=== PATIENT | female | born 1985 | race Caucasian/White ===

== ENCOUNTER → 2016-09-06 | Outpatient (CLI) | payer MEDICAID ==
--- NOTE | 2016-09-06 18:44 | REP ---
Clinical: Hydrocephalus. Comparison: 08/06/2015. Findings: Shunt remains stable in position as compared to prior examination with its tip extending to the midline likely related to the anterior horns of the lateral ventricles and extends along the right side of the cranium, neck, chest and abdomen/pelvis extending with its tip in the pelvis. Tubing appears continuous throughout its course and without evidence for stenosis or fracture. AP and lateral views of the cranium are stable and a right occipital giovanny hole is again identified. Frontal view of the chest is unremarkable. Views of the abdomen and pelvis demonstrate nonspecific bowel gas pattern. The osseous structures appear intact and normal. Impression: Shunt appears continuous from its tip in the region of the midline lateral ventricles along its course into the pelvis. Signed by Devyn Lynn MD 09/06/2016 06:36 P
== END ==
LOC: M RAD 17:38
PROVIDERS: ATTEND Family Medicine
DX: Z45.41 Encounter for adjustment and management of cerebrospinal fluid drainage device (principal)

== ENCOUNTER → 2019-06-20 | Outpatient (REF) | payer MEDICARE, MEDICAID | LOC: M LAB REF 16:19 | PROVIDERS: ATTEND Registered Nurse | DX: J02.9 Acute pharyngitis, unspecified (principal) ==

== ENCOUNTER 2020-12-23 13:41 | Emergency (ER) | payer MEDICARE, MEDICAID ==
[~2020-12-23] VITALS: Ht 157.5 cm; Wt 99.7 kg
[2020-12-23] MEDS ORDERED: VENL150T24 (13:55)
[2020-12-23] MEDS ORDERED: DROS3TAB (13:55)
[2020-12-23] MEDS ORDERED: LORA-674 (13:55)
[2020-12-23 19:01] LABS: BASO # 0.1 10^3/uL (0.0-0.2); BASO % 0.5 % (0.0-1.0); EOS % 0.2 % (0.0-3.0); HEMATOCRIT 48.6 % (36.0-47.0); HEMOGLOBIN 16.1 g/dl (12.0-15.5); LYMPH # 1.6 10^3/uL (1.5-5.0); LYMPH % 8.7 % (24.0-44.0); MEAN CORPUSCULAR HGB CONC 33.1 g/dl (32.0-36.5); MEAN CORPUSCULAR VOLUME 90.7 fl (80.0-96.0); MONO # 1.5 10^3/uL (0.0-0.8); MONO % 7.9 % (2.0-8.0); NEUTROPHILS # 15.2 10^3/uL (1.5-8.5); NEUTROPHILS % 82.3 % (36.0-66.0); PLATELET COUNT, AUTOMATED 414 10^3/uL (150-450); RED BLOOD COUNT 5.36 10^6/uL (4.00-5.40)
[2020-12-23 19:03] LABS: WHITE BLOOD COUNT 18.5 10^3/uL (4.0-10.0)
[2020-12-23] MEDS ORDERED: ISOVUE-370 76% 100ML VIAL As Ordered ONE (19:15)
[2020-12-23 19:26] LABS: ALBUMIN 4.1 GM/DL (3.2-5.2); ALT/SGPT 36 U/L (12-78); BILIRUBIN,TOTAL 0.4 MG/DL (0.2-1.0); BLOOD UREA NITROGEN 13 MG/DL (7-18); CALCIUM LEVEL 10.1 MG/DL (8.5-10.1); CARBON DIOXIDE LEVEL 29 MEQ/L (21-32); CHLORIDE LEVEL 103 MEQ/L (98-107); CREATININE FOR GFR 1.05 MG/DL (0.55-1.30); GLOMERULAR FILTRATION RATE > 60.0 (>60); GLUCOSE, FASTING 94 MG/DL (70-100); LIPASE 72 U/L (73-393); POTASSIUM SERUM 4.2 MEQ/L (3.5-5.1); SODIUM LEVEL 138 MEQ/L (136-145); TOTAL PROTEIN 8.4 GM/DL (6.4-8.2)
[2020-12-23] MEDS ORDERED: KETOROLAC 30 MG/ML 1ML VIAL IV ONE (20:45)
--- NOTE | 2020-12-23 21:14 | REPVR ---
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 COMPARISON: CR Skull, partial Ap, Lat 09/25/2015 4:51 PM FINDINGS: Tubes, catheters and devices: MANIFOLD BUILDER shunt catheter overlies the right side of the neck, chest, abdomen and pelvis with the tip at the sacrococcygeal junction. Sinuses: Visualized paranasal sinuses are well aerated. Airway: Upper airway and trachea are unremarkable in the neck and chest. Lungs: No consolidations. Gastrointestinal tract: Bowel is unremarkable. Bones/joints: Normal. No fracture. No dislocation. Soft tissues: Unremarkable. IMPRESSION: Right MANIFOLD BUILDER shunt catheter appears continuous with its tip in the pelvis. Electronically signed by: Solis Norwood On 12/23/2020 21:14:24 PM
--- NOTE | 2020-12-23 21:23 | REPVR ---
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 Radiation optimization: All CT scans at this facility use at least one of these dose optimization techniques: automated exposure control; mA and/or kV adjustment per patient size (includes targeted exams where dose is matched to clinical indication); or iterative reconstruction. COMPARISON: CT Head without contrast 08/11/2015 12:14 PM FINDINGS: Tubes, catheters and devices: Frontal approach FORMULATION SCIENTIST shunt catheter with its tip in left lateral ventricle in the midline. The shunt tubing is tunneled in the scalp overlying the right anterior portion of skull. Brain: Normal. No hemorrhage. Unremarkable white matter. No mass effect. Cerebral ventricles: Stable dilatation of the posterior body, atrium and occipital horn right lateral ventricle. No hydrocephalus. 3rd and lateral ventricles are small in size and unchanged. Paranasal sinuses: Visualized sinuses are unremarkable. No fluid levels. Mastoid air cells: Visualized mastoid air cells are well aerated. Bones/joints: Unremarkable. No acute fracture. Soft tissues: See "Tubes, catheters and devices" finding. IMPRESSION: 1. No acute intracranial abnormality. 2. Shunt catheter with its tip in the left lateral ventricle near the midline with no significant change from prior study. No hydrocephalus. Electronically signed by: Solis Norwood On 12/23/2020 21:23:23 PM
--- NOTE | 2020-12-23 22:13 | REPVR ---
PROCEDURE INFORMATION: Exam: CT Abdomen And Pelvis With Contrast Exam date and time: 12/23/2020 8:08 PM Age: 35 years old Clinical indication: Abdominal pain; Localized; Right lower quadrant (rlq); Additional info: Rlq abd pain vp care management shut TECHNIQUE: Imaging protocol: Computed tomography of the abdomen and pelvis with contrast. Axial, coronal and sagittal reformatted images were created and reviewed. Radiation optimization: All CT scans at this facility use at least one of these dose optimization techniques: automated exposure control; mA and/or kV adjustment per patient size (includes targeted exams where dose is matched to clinical indication); or iterative reconstruction. Contrast material: ISOVUE 370; Contrast volume: 100 ml; Contrast route: INTRAVENOUS (IV); COMPARISON: CR SHUNT SERIES 12/23/2020 7:39 PM FINDINGS: Tubes, catheters and devices: Partially visualized CAMOUFLAGE SPECIALIST shunt catheter. Liver: Mild hepatic steatosis. Gallbladder and bile ducts: No radiodense gallstones. No biliary ductal dilatation. Pancreas: Unremarkable. Spleen: Unremarkable. Adrenal glands: Normal. No mass. Kidneys and ureters: No mass. No radiodense calculi. No hydronephrosis. Stomach and bowel: No bowel wall thickening. No obstruction. No pneumatosis. Appendix: Dilated, thickwalled, hyperemic appendix with mild to moderate periappendiceal inflammatory change and intraluminal appendicoliths. Intraperitoneal space: Small ascites. Small amount of free intraperitoneal air adjacent to the appendix. No organized collection. Vasculature: Unremarkable. No aneurysm. Lymph nodes: Small mesenteric lymph nodes, likely reactive. No pathologically enlarged lymph nodes. Urinary bladder: Unremarkable as visualized. Reproductive: Unremarkable. Bones/joints: No acute osseous abnormality. Mild degenerative changes. Soft tissues: Unremarkable. IMPRESSION: 1. Perforated appendicitis, as described above. 2. Additional findings, as above. Electronically signed by: Antonio Jugn On 12/23/2020 22:12:44 PM
[2020-12-23] MEDS ORDERED: IMIPENEM/CILASTATIN 1,000 MG in D5W MINI-BAG PLUS 100 ML IV ONE (22:40)
[2020-12-24 00:22] LABS: RSV AMPLIFICATION NEGATIVE (NEGATIVE)
[2020-12-24] MEDS ORDERED: ACETAMINOPHEN TAB 650MG DOSE (2X325MG) PO ONE (02:05)
[2020-12-24 02:29] VITALS: BP 106/62
== END 2020-12-24 02:53 | disposition short-term general hospital (02) ==
LOC: M ED 13:41
DX: K35.32 Acute appendicitis with perforation, localized peritonitis, and gangrene, without abscess (principal); F33.9 Major depressive disorder, recurrent, unspecified; Z98.2 Presence of cerebrospinal fluid drainage device; Z87.820 Personal history of traumatic brain injury; Z88.0 Allergy status to penicillin; Z79.899 Other long term (current) drug therapy; Z79.3 Long term (current) use of hormonal contraceptives
CPT/HCPCS: 70450; 74177; 75809; 80047; 80053; 81001; 83605; 83690; 84702; 85025; 87631; 96365; 96366; 96375; 99284; J0743; J1885; Q9967